=== PATIENT | female | born 1955 | race Caucasian/White ===

== ENCOUNTER 2019-03-30 07:07 | Day surgery (SDC) | payer BC, OTHER ==
[2019-03-25 08:43] VITALS: BMI 27.7
[~2019-03-30 07:07] MED LIST: LACTATED RINGERS 1,000 ML IV SCH; LIDOCAINE 1% 20 ML VIAL (10MG/ML) FOR IV START INTRADERMA PRN
[2019-03-30 07:23] VITALS: TEMP 97.8
[2019-03-30] MEDS ORDERED: LACTATED RINGERS 1,000 ML IV ONE (07:23)
--- NOTE | 2019-03-30 07:23 | P.GSHP ---
History of Present Illness H&P Date: 03/30/19 CHIEF COMPLAINT: Colon screen HISTORY OF PRESENT ILLNESS: The patient is a 63-year-old female who presents for colon screen. Lower endoscopy was offered for further evaluation and management. PAST MEDICAL HISTORY: Please see list. PAST SURGICAL HISTORY: Please see list. MEDICATIONS: Please see list. ALLERGIES: Please see list. SOCIAL HISTORY: No illicit drug use FAMILY HISTORY: No reports of Crohn disease or ulcerative colitis. REVIEW OF ORGAN SYSTEMS: CONSTITUTIONAL: No reports of fevers or chills. PHYSICAL EXAM: VITAL SIGNS: Stable GENERAL: Well-developed pleasant in no acute distress. HEENT: No scleral icterus. Extraocular movements grossly intact. Moist buccal mucosa. NECK: Supple without lymphadenopathy. CHEST: Unlabored respirations. Equal bilateral excursions. CARDIOVASCULAR: Regular rate and rhythm. Distal 2+ pulses. ABDOMEN: Soft, nontender, nondistended. MUSCULOSKELETAL: No clubbing, cyanosis, or edema. ASSESSMENT: 1. Colon screen. PLAN: 1. 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 Past Drug Use History: None Reported - Past Family History Mother Family Medical History: Cancer, Deep Vein Thrombosis (DVT), Pulmonary Embolus Additional Family Medical History / Comment(s): SKIN CANCER Sister(s) Family Medical History: Cancer Additional Family Medical History / Comment(s): SKIN CANCER Medications and Allergies Home Medications Medication Instructions Recorded Confirmed Type Diazepam [Valium] 5 mg PO DAILY PRN 11/25/16 03/25/19 History Temazepam [Restoril] 15 mg PO HS PRN 11/25/16 03/25/19 History Insulin Glargine,Hum.rec.anlog 10 unit SQ HS 03/25/19 03/25/19 History [Lantus Solostar] Allergies Allergy/AdvReac Type Severity Reaction Status Date / Time clindamycin [From Cleocin] Allergy Unknown Rash/Hives Verified 03/25/19 08:34 enalaprilat [From Vasotec] Allergy Unknown Rash/Hives Verified 03/25/19 08:34 & Other Unknown Reaction propranolol Allergy Unknown Rash/Hives Verified 03/25/19 08:34 Penicillins AdvReac Severe Headache Verified 03/25/19 08:34 Surgical - Exam Vital Signs Temp Pulse Resp Pulse Ox 97.8 F 111 H 18 99 03/30/19 07:22 03/30/19 07:22 03/30/19 07:22 03/30/19 07:22
[2019-03-30 07:30] LABS: Glucose,Whole Blood 147 mg/dL (75-99)
[2019-03-30] MEDS ORDERED: PROPOFOL 10 MG/ML 20 ML VIAL IV ONE (08:00)
--- NOTE | 2019-03-30 08:30 | P.PCN ---
Date of Procedure: 03/30/19 Description of Procedure: PREOPERATIVE DIAGNOSIS: Personal history of high-risk colon polyps Colonoscopy screening. POSTOPERATIVE DIAGNOSIS: Personal history of high-risk colon polyps Colonoscopy screening. Severe sigmoid diverticulosis OPERATION: Colonoscopy to the ileocecal valve and appendiceal orifice. SURGEON: Florence Costello MD. ANESTHESIA: MAC. INDICATIONS: The patient is a 63-year-old female who presents for colonoscopy screening. Last colonoscopy 2 years ago with higher risk colon polyps. Benefits and risks were described and informed consent was obtained. DESCRIPTION OF PROCEDURE: The patient had undergone Suprep. She had been brought into the operating room and laid in the left lateral decubitus position. After adequate intravenous sedation, the rectum was examined with 2% lidocaine jelly. No external hemorrhoids were encountered. The rectal tone was within normal limits. No lesions were palpated in the rectal vault. An Olympus colonoscope was advanced until the ileocecal valve and appendiceal orifice were clearly viewed. The prep was excellent with clear visualization of the mucosal folds. The scope was removed with visualization of each mucosal fold. Moderate to severe sigmoid diverticulosis was encountered. No colonic polyps were found. No evidence of focal colitis was found. Retroflexion of the scope demonstrated grade 1 internal hemorrhoids without active bleeding or inflammation. The colon was desufflated. The patient had tolerated the procedure well. Withdrawal time was over 6 minutes. FINDINGS: Aronchick preparation quality scale 1 (1-5) Internal hemorrhoids, grade 1 No external prolapsed hemorrhoids. No arteriovenous malformations. No adenomatous polyps. No focal colitis. Severe sigmoid diverticulosis RECOMMENDATIONS: Lower endoscopy in 5 years2023 Plan - Discharge Summary New Discharge Prescriptions: No Action Temazepam [Restoril] 15 mg PO HS PRN PRN Reason: Anxiety Diazepam [Valium] 5 mg PO DAILY PRN PRN Reason: Anxiety Insulin Glargine,Hum.rec.anlog [Lantus Solostar] 10 unit SQ HS Discharge Medication List Diazepam [Valium] 5 mg PO DAILY PRN 11/25/16 [History] Temazepam [Restoril] 15 mg PO HS PRN 11/25/16 [History] Insulin Glargine,Hum.rec.anlog [Lantus Solostar] 10 unit SQ HS 03/25/19 [History] Follow up Appointment(s)/Referral(s): Florence Costello MD [STAFF PHYSICIAN] - As Needed Patient Instructions/Handouts: Diverticulosis Diet (GEN), Diverticulosis (ED) Activity/Diet/Wound Care/Special Instructions: Repeat colonoscopy in 5 years, 2023 Discharge Disposition: HOME SELF-CARE
[2019-03-30 08:44] VITALS: BP 155/89; PULSE 79; RESP 18
== END 2019-03-30 08:58 | disposition home or self-care (01) ==
LOC: ORWHC2ENDO 07:07
PROVIDERS: ATTEND Surgery Plastic and Reconstructive Surgery
DX: Z12.11 Encounter for screening for malignant neoplasm of colon (principal); K57.30 Diverticulosis of large intestine without perforation or abscess without bleeding; K64.0 First degree hemorrhoids; I10 Essential (primary) hypertension; E11.9 Type 2 diabetes mellitus without complications; F41.9 Anxiety disorder, unspecified; Z87.442 Personal history of urinary calculi; Z90.49 Acquired absence of other specified parts of digestive tract; Z87.891 Personal history of nicotine dependence; Z83.2 Family history of diseases of the blood and blood-forming organs and certain disorders involving the immune mechanism; Z82.49 Family history of ischemic heart disease and other diseases of the circulatory system; Z80.8 Family history of malignant neoplasm of other organs or systems; Z79.4 Long term (current) use of insulin; Z79.899 Other long term (current) drug therapy; Z88.0 Allergy status to penicillin; Z88.1 Allergy status to other antibiotic agents; Z88.8 Allergy status to other drugs, medicaments and biological substances; Z86.010 Personal history of colon polyps
CPT/HCPCS: J2704; G0105